=== PATIENT | male | born 2005 | race Caucasian/White ===

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

== ENCOUNTER 2024-11-25 17:49 | Emergency (ER) | payer SELFPAY ==
[2024-11-25] MEDS: Ketorolac 30 MG/ML SDV IM ONE (18:49)
[2024-11-25] MEDS: Acetaminophen 500 MG Tab PO ONE (18:49)
== END 2024-11-25 19:45 | disposition home or self-care (01) ==
LOC: FB.ED 17:49
DX: B34.9 Viral infection, unspecified (principal)
CPT/HCPCS: 71045; 87428; 96372; 99284; A9270; J1885